=== PATIENT | female | born 1950 | race Caucasian/White ===

== ENCOUNTER 2017-02-05 00:45 | Emergency (ER) | payer MEDICAID, MEDICARE ==
[2017-02-05] MEDS ORDERED: Morphine 2 MG/ML Syringe IVPUSH PRN (00:47)
[2017-02-05 01:43] LABS: CHLORIDE,CL 103 mEq/L (98-106); SODIUM,NA 143 mEq/L (136-145)
--- NOTE | 2017-02-05 01:53 | EDM.PDOC ---
ED HPI GENERAL MEDICAL PROBLEM - General Chief Complaint: Lower Extremity Injury/Pain Stated Complaint: L knee injury Time Seen by Provider: 02/05/17 00:55 Source of Information: Reports: Patient, EMS History Limitations: Reports: No Limitations - History of Present Illness INITIAL COMMENTS - FREE TEXT/NARRATIVE: Was getting out of her camper when she missed her step and fell to the ground. She is complaining of left knee pain. has obvious deformity noted. Denies any other pain or injury. She states that she was going out to close the door and missed the step falling to the ground and twisting her leg. Does have history of breast cancer and sees Dr. Arriaza at [facility]. Pt is new pt here so no previous records are available. Onset: Today Location: Reports: Lower Extremity, Left Quality: Reports: Sharp, Stabbing Severity: Severe Improves with: Reports: Immobilization Worsens with: Reports: Movement Associated Symptoms: Reports: No Other Symptoms - Related Data Allergies Allergy/AdvReac Type Severity Reaction Status Date / Time lipitor Allergy Abdominal Uncoded 02/05/17 01:35 Pain Home Meds: Home Meds Ascorbic Acid [Vitamin C] 1,000 mg PO DAILY 02/05/17 [History] Calcium Carbonate [Calcium] 600 mg PO DAILY 02/05/17 [History] Cholecalciferol (Vitamin D3) [Vitamin D3] 1,000 unit PO DAILY 02/05/17 [History] Cyanocobalamin (Vitamin B12) [Vitamin B12] 1,000 mcg PO ASDIRECTED 02/05/17 [ History] Exemestane 25 mg PO ACBREAKFAST 02/05/17 [History] Gabapentin [Neurontin] 300 mg PO BID 02/05/17 [History] Hydrocodone/Acetaminophen [Hydrocodon-Acetaminophn 10-325] 1 tab PO Q4H PRN 10/19 [History] Magnesium Oxide [Magnesium] 400 mg PO DAILY 02/05/17 [History] Metoprolol Tartrate 75 mg PO DAILY 02/05/17 [History] Multivitamin [Multivitamins] 1 tab PO DAILY 02/05/17 [History] Oxybutynin [Oxybutynin ER] 10 mg PO BEDTIME 02/05/17 [History] Potassium Gluconate [Potassium] 595 mg PO DAILY 02/05/17 [History] Pravastatin [Pravachol] 80 mg PO BEDTIME 02/05/17 [History] Triamcinolone Acetonide [Triamcinolone Acetonide 0.1% Crm] 15 gm TOP ONETIME 10/19 [History] Warfarin Sodium [Jantoven] 5 mg PO DAILY 02/05/17 [History] Zafirlukast 20 mg BID 02/05/17 [History] Zolpidem [Ambien] 10 mg PO BEDTIME 02/05/17 [History] metFORMIN [Glucophage XR] 1,000 mg PO BIDMEALS 02/05/17 [History] traZODone HCl [Trazodone HCl] 100 mg PO BEDTIME 02/05/17 [History] Past Medical History Cardiovascular History: Reports: Afib, Hypertension, Stents Respiratory History: Reports: Asthma Musculoskeletal History: Reports: Arthritis Oncologic (Cancer) History: Reports: Breast - Past Surgical History Musculoskeletal Surgical History: Reports: Knee Replacement Oncologic Surgical History: Reports: Mastectomy Social & Family History - Family History Family Medical History: Unobtainable - Tobacco Use Smoking Status *Q: Current Every Day Smoker Years of Tobacco use: 40 Packs/Tins Daily: 1 Second Hand Smoke Exposure: No - Caffeine Use Caffeine Use: Reports: Coffee - Recreational Drug Use Recreational Drug Use: No Review of Systems - Review of Systems Review Of Systems: See Below Constitutional: Reports: No Symptoms Eyes: Reports: No Symptoms Ears: Reports: No Symptoms Nose: Reports: No Symptoms Mouth/Throat: Reports: No Symptoms Respiratory: Reports: No Symptoms Cardiovascular: Reports: No Symptoms GI/Abdominal: Reports: No Symptoms Genitourinary: Reports: No Symptoms Musculoskeletal: Reports: Leg Pain Skin: Reports: No Symptoms Neurological: Reports: No Symptoms Psychiatric: Reports: No Symptoms ED EXAM, GENERAL - Physical Exam Exam: See Below Exam Limited By: No Limitations General Appearance: Alert, Severe Distress Ears: Normal External Exam, Normal Canal Nose: Normal Inspection Throat/Mouth: Normal Inspection, Normal Oropharynx, No Airway Compromise Head: Atraumatic, Normocephalic Neck: Normal Inspection, Supple, Non-Tender, Full Range of Motion Respiratory/Chest: No Respiratory Distress, Lungs Clear, Normal Breath Sounds Cardiovascular: Normal Peripheral Pulses, Regular Rate, Rhythm, No Edema GI/Abdominal: Normal Bowel Sounds, Soft, Non-Tender, No Organomegaly Extremities: Leg Pain (left knee is very painful and deformity noted. Good pulses distally. No edema noted distally. Good sensation noted distally with normal capillary refill. ) Neurological: Alert, Oriented Skin Exam: Warm, Dry, Intact Course - Vital Signs Last Recorded V/S: Last Vital Signs Temp 98.8 F 02/05/17 01:05 Pulse 74 02/05/17 01:05 Resp 24 H 02/05/17 01:05 BP 132/78 02/05/17 01:05 Pulse Ox 93 L 02/05/17 01:05 - Orders/Labs/Meds Orders: Active Orders 24 hr Category Date Time Status Knee 3V Lt [CR] Stat Exams 02/05/17 00:44 Taken INR,PT,PROTHROMBIN TIME [COAG] Stat Lab 02/05/17 01:42 Ordered Morphine Med 02/05/17 00:47 Active 2 mg IVPUSH Q30M PRN Medication Orders Morphine Sulfate (Morphine) 2 mg IVPUSH Q30M PRN PRN Reason: Pain Labs: Laboratory Tests 02/05/17 02/05/17 Range/Units 01:30 01:30 WBC 6.9 (5.0-10.0) 10^3/uL RBC 4.43 (4.00-5.50) 10^6/uL Hgb 7.9 L* (12.0-16.0) g/dL Hct 28.5 L (37.0-47.0) % MCV 64.3 L (82.0-94.0) fL MCH 17.8 L (27.0-32.0) pg MCHC 27.7 L (33.0-38.0) g/dL RDW Coeff of Edith 21.2 H (11.0-15.0) % Plt Count 338 (150-400) 10^3/uL Neut % (Auto) 71.4 (35-85) % Lymph % (Auto) 18.2 (10-55) % [place] % (Auto) 6.6 (0-16) % Eos % (Auto) 3.5 (0-5) % Baso % (Auto) 0.3 (0-3) % Neut # (Auto) 4.95 (1.80-7.00) 10^3/uL Lymph # (Auto) 1.26 (1.00-4.80) 10^3/uL [place] # (Auto) 0.46 (0.00-0.80) 10^3/uL Eos # (Auto) 0.24 (0.00-0.45) 10^3/uL Baso # (Auto) 0.02 10^3/uL Sodium 143 (136-145) mEq/L Potassium 3.8 (3.5-5.0) mEq/L Chloride 103 (98-106) mEq/L Carbon Dioxide 28 (21-32) mmol/L BUN 19 H (7-18) mg/dL Creatinine 0.9 (0.6-1.0) mg/dL Est Cr Clr Drug Dosing 51.66 mL/min Estimated GFR (MDRD) > 60 (>=60) mL/min Glucose 96 (75-99) mg/dL Calcium 8.8 (8.4-10.1) mg/dL Meds: Medications Generic Name Dose Route Start Last Admin Trade Name Freq PRN Reason Stop Dose Admin Morphine Sulfate 2 mg 02/05/17 00:47 Morphine IVPUSH Q30M PRN Pain - Re-Assessments/Exams Free Text/Narrative Re-Assessment/Exam: 02/05/17 0130 Did contact ER in [place] and they do not have an orthopedic surgeon emergency vehicle operations [email or web address] so would not be able to take pt 02/05/17 0150 Called [facility] in [place] and discussed case with Dr. Hyatt- hospitalist as Dr. Val ayers emergency vehicle operations instructor was in surgery. He did accept her in transfer. Will transfer to [facility] with pain meds and IV fluids. Departure - Departure Time of Disposition: 02:14 Disposition: DC/Tfer to Acute Hospital 02 Condition: Fair Clinical Impression: Fracture of tibia AND fibula Iron deficiency anemia Qualifiers: Iron deficiency anemia type: unspecified iron deficiency Qualified Code(s): D50.9 - Iron deficiency anemia, unspecified - Discharge Information Forms: ED Department Discharge Additional Instructions: Will transfer to [facility] per ALS with IV normal saline and use fentanyl 50 mcg IV q1hour as needed for pain enroute Dr Hyatt accepting Did discuss with pt the benefits of being transferred to [place] to include need for specialist in orthopedics to repair her fracture. Also need for specialist for her iron deficiency anemia and monitoring she will need. Risks of staying her include no available surgeon, and increase in pain and no specialist. She voices understanding and requests to be transferred. - Problem List & Annotations (1) Fracture of tibia AND fibula SNOMED Code(s): 683956616 Code(s): S82.209A - UNSP FRACTURE OF SHAFT OF UNSP TIBIA, INIT FOR CLOS FX; S82.409A - UNSP FRACTURE OF SHAFT OF UNSP FIBULA, INIT FOR CLOS FX Status: Acute Priority: High Current Visit: Yes (2) Iron deficiency anemia SNOMED Code(s): 13209679 Code(s): D50.9 - IRON DEFICIENCY ANEMIA, UNSPECIFIED Status: Acute Priority: High Current Visit: Yes Qualifiers: Iron deficiency anemia type: unspecified iron deficiency Qualified Code(s) : D50.9 - Iron deficiency anemia, unspecified - Problem List Review Problem List Initiated/Reviewed/Updated: Yes - My Orders Last 24 Hours: My Active Orders 02/05/17 00:44 Knee 3V Lt [CR] Stat 02/05/17 00:47 Morphine 2 mg IVPUSH Q30M PRN 02/05/17 01:42 INR,PT,PROTHROMBIN TIME [COAG] Stat - Assessment/Plan Last 24 Hours: My Active Orders 02/05/17 00:44 Knee 3V Lt [CR] Stat 02/05/17 00:47 Morphine 2 mg IVPUSH Q30M PRN 02/05/17 01:42 INR,PT,PROTHROMBIN TIME [COAG] Stat
[2017-02-05] MEDS ORDERED: Sodium Chloride 0.9% 1,000 ML IV SCH (02:15)
[2017-02-05 03:10] VITALS: BP 114/68
== END 2017-02-05 02:30 ==
LOC: CC.ED 00:45
DX: M97.12XA Periprosthetic fracture around internal prosthetic left knee joint, initial encounter (principal); S82.832A Other fracture of upper and lower end of left fibula, initial encounter for closed fracture; D50.9 Iron deficiency anemia, unspecified; I48.91 Unspecified atrial fibrillation; J45.909 Unspecified asthma, uncomplicated; I10 Essential (primary) hypertension; F17.210 Nicotine dependence, cigarettes, uncomplicated; Z95.5 Presence of coronary angioplasty implant and graft; Z96.659 Presence of unspecified artificial knee joint; Z79.01 Long term (current) use of anticoagulants; Z79.84 Long term (current) use of oral hypoglycemic drugs; Z79.899 Other long term (current) drug therapy; Z88.8 Allergy status to other drugs, medicaments and biological substances; W10.9XXA Fall (on) (from) unspecified stairs and steps, initial encounter
CPT/HCPCS: 36415; 51702; 73562; 80048; 85025; 85610; 96374; 99285; J2270